=== PATIENT | male | born 1965 | race Caucasian/White ===

== ENCOUNTER → 2019-04-18 07:47 | Outpatient (BNVA) | payer OTHER, SELFPAY | PROVIDERS: PCP Family Medicine; Visit Provider Anesthesiology | DX: G89.29 Other chronic pain (principal); M54.16 Radiculopathy, lumbar region; M79.651 Pain in right thigh; M79.652 Pain in left thigh; Z79.891 Long term (current) use of opiate analgesic | CPT/HCPCS: 62323; 77003; 99214; J1040; J2001; J3490 ==